=== PATIENT | female | born 2000 | race Caucasian/White ===

== ENCOUNTER 2020-06-07 13:35 | Emergency (ER) | payer BC ==
[2020-06-07] MEDS ORDERED: Sodium Chloride 0.9% 10 ML Syringe FLUSH PRN (13:55)
--- NOTE | 2020-06-07 13:55 | EDM.PDOC ---
ED HPI GENERAL MEDICAL PROBLEM - General Stated Complaint: VOMITING Time Seen by Provider: 06/07/20 13:50 Source of Information: Reports: Patient History Limitations: Reports: No Limitations - History of Present Illness INITIAL COMMENTS - FREE TEXT/NARRATIVE: 19-year-old female ( 2 para 0 AB 1 who is approximately 27 weeks gestation) who reports beginning approximately 7 PM last night she developed nausea and some malaise. She had been eating and drinking normally prior to this and she had really had no symptoms prior to this at all. Beginning approximately 11 PM last night she developed vomiting and some mild upper abdominal discomfort. She had vomiting 15+ through the night and today and was unable to keep any liquids down. She states initially it was food particles and then it was whenever water she tried to drink and then it was somewhat bilious toward the end. There is no blood in her emesis. She did have a normal bowel movement yesterday and has had no diarrhea and has had no bowel movement today. She reports that it does feel uncomfortable when she urinates but no dysuria and no hematuria. She does note that the urine was concentrated and she has had decreased urine output. She has had no measured fever and no chills. She reports that her abdominal pain is mild and she would basically describe it as a discomfort and it is above her upper abdomen. She rates this pain/discomfort as a 2/10. She has had no vaginal fluid leakage and no vaginal bleeding. He continues to have nausea now. She has no appetite. She has had no nasal congestion, sore throat or cough. No shortness of breath. She does feel somewhat weak and dizzy and has a dry mouth. There are no other associated signs or symptoms. There are no other modifying factors. She is here with her mother. Onset: Other (Last night at 7 PM) Duration: Getting Worse Location: Reports: Abdomen Quality: Reports: Ache, Dull Severity: Mild Improves with: Reports: None Worsens with: Reports: Other (Trying to take PO) Associated Symptoms: Reports: Nausea/Vomiting, Weakness, Other (Otherwise as above.) Treatments SINK CUTTER: Reports: Other (see below) (Nothing.) - Related Data Allergies Allergy/AdvReac Type Severity Reaction Status Date / Time bupropion [From Wellbutrin] AdvReac Mild Other Verified 06/07/20 13:53 escitalopram [From Lexapro] AdvReac Mild Other Verified 06/07/20 13:52 Home Meds: Home Meds Mag Oxide/D3/Turmeric Rt Xt [Magnesium-Vit D3-Turmeric Cap] 1 each PO DAILY 06/07/20 [History] Pnv No.95/Ferrous Fum/Folic AC [ Tablet] 1 each PO DAILY 06/07/20 [History] Past Medical History - Past Health History Medical/Surgical History: Denies Medical/Surgical History (Surgical history as detailed below.) - Past Surgical History Musculoskeletal Surgical History: Reports: Other (See Below) (Left knee surgery 3.) Social & Family History - Tobacco Use Tobacco Use Status *Q: Unknown Ever Used Tobacco (Nonsmoker.) - Alcohol Use Alcohol Use History: No - Living Situation & Occupation Social History Comment: She is here with her mother. ED ROS GENERAL - Review of Systems Review Of Systems: See Below Constitutional: Reports: Malaise HEENT: Reports: Other (Dry mouth.) Respiratory: Reports: No Symptoms Cardiovascular: Reports: No Symptoms GI/Abdominal: Reports: Abdominal Pain (Mild as above.), Nausea, Vomiting. Denies: Diarrhea : Reports: Other (Decreased urination.). Denies: Discharge (No vaginal fluid or vaginal bleeding.) Musculoskeletal: Reports: Back Pain (Some lower back pain.) Skin: Reports: No Symptoms Neurological: Reports: Weakness (Generalized) Psychiatric: Reports: No Symptoms Hematologic/Lymphatic: Reports: No Symptoms Immunologic: Reports: No Symptoms ED EXAM, GENERAL - Physical Exam Exam: See Below Exam Limited By: No Limitations General Appearance: Alert, Moderate Distress, Obese Eye Exam: Bilateral Eye: EOMI, Normal Inspection (Sclerae are anicteric), PERRL Ears: Normal External Exam, Hearing Grossly Normal Ear Exam: Bilateral Ear: Auricle Normal Nose: Normal Inspection, Normal Mucosa, No Blood Throat/Mouth: Normal Lips, Normal Voice, No Airway Compromise, Other (Dry mucous membranes.) Head: Atraumatic, Normocephalic Neck: Normal Inspection, Supple, Non-Tender, Full Range of Motion Respiratory/Chest: No Respiratory Distress, Lungs Clear, Normal Breath Sounds, No Accessory Muscle Use, Chest Non-Tender Cardiovascular: Normal Peripheral Pulses, No Murmur, Tachycardia Peripheral Pulses: 2+: Radial (L), Radial (R), Dorsalis Pedis (L), Dorsalis Pedis (R) GI/Abdominal: Normal Bowel Sounds, Soft, No Mass, Tender (Mild tenderness in the upper abdomen all across the upper abdomen.), Other (The uterus is soft and nontender. I didn't feel movement. heart tones are 124.) Back Exam: Normal Inspection, Full Range of Motion. No: CVA Tenderness (R), CVA Tenderness (L) Extremities: Normal Inspection, Normal Range of Motion, Non-Tender, No Pedal Edema, Normal Capillary Refill, Other (Radial and dorsalis pedis pulses are present and symmetric bilaterally.) Neurological: Alert, Oriented, CN II-XII Intact, Normal Cognition, No Motor/Sensory Deficits Psychiatric: Normal Affect Skin Exam: Warm, Dry, Intact, Normal Color, No Rash Course - Vital Signs Last Recorded V/S: Last Vital Signs Temp 36.7 C 06/07/20 14:09 Pulse 121 H 06/07/20 14:09 Resp 16 06/07/20 14:09 BP 140/80 06/07/20 14:09 Pulse Ox 96 06/07/20 14:09 - Orders/Labs/Meds Orders: Active Orders 24 hr Category Date Time Status Sodium Chloride 0.9% [Normal Saline] 1,000 ml Med 06/07/20 14:00 Active IV ASDIRECTED Sodium Chloride 0.9% [Saline Flush] Med 06/07/20 13:55 Active 10 ml FLUSH ASDIRECTED PRN Peripheral IV Insertion Adult [OM.PC] Routine Oth 06/07/20 13:55 Ordered Medication Orders Sodium Chloride (Normal Saline) 1,000 mls @ 150 mls/hr IV ASDIRECTED JUAN DIEGO Last Admin: 06/07/20 15:20 Dose: 150 mls/hr Documented by: LOUISE Sodium Chloride (Sodium Chloride 0.9% 10 Ml Syringe) 10 ml FLUSH ASDIRECTED PRN PRN Reason: Keep Vein Open Last Admin: 06/07/20 13:59 Dose: 10 ml Documented by: LOUISE Labs: Laboratory Tests 06/07/20 06/07/20 06/07/20 Range/Units 14:00 14:30 14:30 WBC 12.7 H (3.0-10.3) x10-3/uL RBC 4.22 (3.60-5.20) x10(6)uL Hgb 13.2 (11.4-15.5) g/dL Hct 39.9 (34.2-48.2) % MCV 94.5 (76.7-100.5) fL MCH 31.2 (23.9-33.9) pg MCHC 33.1 (31.9-34.8) g/dL RDW 15.0 (12.3-16.5) % Plt Count 176 (151-488) x10(3)uL MPV 8.3 (7.1-12.4) fL Add Manual Diff Yes Neutrophils % (Manual) 87 H (46-82) % Band Neutrophils % 3 (0-6) % Lymphocytes % (Manual) 5 L (13-37) % Monocytes % (Manual) 5 (4-12) % Tear Drop Cells Few Sodium 140 (135-145) mmol/L Potassium 3.8 (3.5-5.3) mmol/L Chloride 102 (100-110) mmol/L Carbon Dioxide 24 (21-32) mmol/L BUN 11 (7-18) mg/dL Creatinine 0.8 (0.55-1.02) mg/dL Est Cr Clr Drug Dosing TNP Estimated GFR (MDRD) > 60 (>60) BUN/Creatinine Ratio 13.8 (9-20) Glucose 102 (80-116) mg/dL Calcium 8.3 L (8.6-10.2) mg/dL Magnesium 1.6 L (1.8-2.5) mg/dL Total Bilirubin 0.4 (0.1-1.3) mg/dL AST 14 (5-25) IU/L ALT 18 (12-36) U/L Alkaline Phosphatase 87 (56-112) IU/L C-Reactive Protein (0.5-0.9) mg/dL Total Protein 6.2 (6.0-8.0) g/dL Albumin 2.7 L (3.5-5.2) g/dL Globulin 3.5 g/dL Albumin/Globulin Ratio 0.8 Lipase (73-393) U/L Urine Color (YELLOW) Urine Appearance (CLEAR) Urine pH (5.0-6.5) Ur Specific Nelson (1.010-1.025) Urine Protein (NEGATIVE) mg/dL Urine Glucose (UA) (NORMAL) mg/dL Urine Ketones (NEGATIVE) mg/dL Urine Occult Blood (NEGATIVE) Urine Nitrite (NEGATIVE) Urine Bilirubin (NEGATIVE) Urine Urobilinogen (NEGATIVE) mg/dL Ur Leukocyte Esterase (NEGATIVE) Urine RBC (0-5) Urine WBC (0-5) Ur Squamous Epith Cells (NS,R,O) Urine Bacteria (NS) SARS-CoV-2 RNA (JERO) Negative (NEGATIVE) 06/07/20 06/07/20 Range/Units 14:30 15:15 WBC (3.0-10.3) x10-3/uL RBC (3.60-5.20) x10(6)uL Hgb (11.4-15.5) g/dL Hct (34.2-48.2) % MCV (76.7-100.5) fL MCH (23.9-33.9) pg MCHC (31.9-34.8) g/dL RDW (12.3-16.5) % Plt Count (151-488) x10(3)uL MPV (7.1-12.4) fL Add Manual Diff Neutrophils % (Manual) (46-82) % Band Neutrophils % (0-6) % Lymphocytes % (Manual) (13-37) % Monocytes % (Manual) (4-12) % Tear Drop Cells Sodium (135-145) mmol/L Potassium (3.5-5.3) mmol/L Chloride (100-110) mmol/L Carbon Dioxide (21-32) mmol/L BUN (7-18) mg/dL Creatinine (0.55-1.02) mg/dL Est Cr Clr Drug Dosing Estimated GFR (MDRD) (>60) BUN/Creatinine Ratio (9-20) Glucose (80-116) mg/dL Calcium (8.6-10.2) mg/dL Magnesium (1.8-2.5) mg/dL Total Bilirubin (0.1-1.3) mg/dL AST (5-25) IU/L ALT (12-36) U/L Alkaline Phosphatase (56-112) IU/L C-Reactive Protein 3.7 H* (0.5-0.9) mg/dL Total Protein (6.0-8.0) g/dL Albumin (3.5-5.2) g/dL Globulin g/dL Albumin/Globulin Ratio Lipase 61 L (73-393) U/L Urine Color Yellow (YELLOW) Urine Appearance Clear (CLEAR) Urine pH 5.0 (5.0-6.5) Ur Specific Nelson 1.030 H (1.010-1.025) Urine Protein Negative (NEGATIVE) mg/dL Urine Glucose (UA) Normal (NORMAL) mg/dL Urine Ketones 150 H (NEGATIVE) mg/dL Urine Occult Blood Negative (NEGATIVE) Urine Nitrite Negative (NEGATIVE) Urine Bilirubin Negative (NEGATIVE) Urine Urobilinogen Normal (NEGATIVE) mg/dL Ur Leukocyte Esterase Negative (NEGATIVE) Urine RBC 0-5 (0-5) Urine WBC 0-5 (0-5) Ur Squamous Epith Cells Moderate H (NS,R,O) Urine Bacteria Few H (NS) SARS-CoV-2 RNA (JERO) (NEGATIVE) Meds: Medications Generic Name Dose Route Start Last Admin Trade Name Freq PRN Reason Stop Dose Admin Sodium Chloride 1,000 mls @ 150 mls/hr 06/07/20 14:00 06/07/20 15:20 Normal Saline IV 150 mls/hr ASDIRECTED JUAN DIEGO Administration Sodium Chloride 10 ml 06/07/20 13:55 06/07/20 13:59 Sodium Chloride 0.9% 10 Ml Syringe FLUSH 10 ml ASDIRECTED PRN Administration Keep Vein Open Discontinued Medications Generic Name Dose Route Start Last Admin Trade Name Freq PRN Reason Stop Dose Admin Sodium Chloride 1,000 mls @ 999 mls/hr 06/07/20 13:56 06/07/20 13:59 Normal Saline IV 06/07/20 14:56 999 mls/hr .BOLUS ONE Administration Promethazine HCl 25 mg/ Sodium 51 mls @ 200 mls/hr 06/07/20 13:57 06/07/20 14:01 Chloride IV 06/07/20 14:12 200 mls/hr ONETIME ONE Administration Ondansetron HCl 4 mg 06/07/20 15:57 06/07/20 16:16 Ondansetron 4 Mg/2 Ml Sdv IVPUSH 06/07/20 15:58 4 mg ONETIME ONE Administration - Re-Assessments/Exams Free Text/Narrative Re-Assessment/Exam: 06/07/20 15:45: The patient is having persistent nausea. I will give the patient Zofran 4 mg IV. She does feel somewhat improved. 06/07/20 17:05: The patient's white blood cell count was elevated at 12.7. Her CRP was elevated at 3.7. Her urinalysis was clear. Her serum electrolyte profile was normal. His are normal. A rapid Covid test was negative. The patient does report she felt somewhat improved after the IV fluids and after IV and IV Zofran. She does feel that her pain is somewhat worse than it was earlier that her nausea is much improved. On exam she does have increased pain with palpation in her upper abdomen on both sides seems to extend even down to the lateral aspects of her uterus. Her uterus is still nontender and soft. Her heart tones are in the 120s. I'm concerned about her elevated white blood cell count and CRP in association with this abdominal pain during her . I feel that she will will need services which are not available at [facility], OB services in association with surgical evaluation as well. I discussed all this with the patient and her mother and they have asked me to discuss her case with the doctors at [facility]. 06/07/20 17:35: I discussed the patient's case with Dr. Figueroa, ED physician at [facility], and he wants me to discuss the patient's case with the surgeon gas combustion engineer. 06/07/20 17:50: I discussed the patient's case with Dr. Eckert, general surgeon at [facility], and he has agreed to accept the patient along with Dr. Figueroa come to the emergency department for further evaluation. The patient will be able to go by private vehicle and this is the mother and the patient's w ishes. We will leave the IV in place and the patient is to go directly to the emergency department at [facility]. She was also instructed to stay NPO. The patient and the mother are in agreement with this plan. Departure - Departure Time of Disposition: 18:10 Disposition: DC/Tfer to Acute Hospital 02 Condition: Fair (Stable) Clinical Impression: Abdominal pain of unknown etiology, Moderate dehydration, Third trimester Vomiting Qualifiers: Vomiting type: unspecified Vomiting Intractability: intractable Nausea presence: with nausea Qualified Code(s): R11.2 - Nausea with vomiting, unspecified - Discharge Information Referrals: PCP,Not In Area [Primary Care Provider] - Forms: ED Department Discharge Additional Instructions: Go directly to the emergency department at [facility]. He will be evaluated the emergency department physician and also by the surgical physician and most probably be admitted to the hospital. Do not have anything to eat or drink and told cleared to do so by the doctors at [facility] in [place]. Sepsis Event Note (ED) - Focused Exam Vital Signs: Vital Signs Temp Pulse Resp BP Pulse Ox 06/07/20 14:09 36.7 C 121 H 16 140/80 96 - My Orders Last 24 Hours: My Active Orders 06/07/20 13:55 Sodium Chloride 0.9% [Saline Flush] 10 ml FLUSH ASDIRECTED PRN Peripheral IV Insertion Adult [OM.PC] Routine 06/07/20 14:00 Sodium Chloride 0.9% [Normal Saline] 1,000 ml IV ASDIRECTED - Assessment/Plan Last 24 Hours: My Active Orders 06/07/20 13:55 Sodium Chloride 0.9% [Saline Flush] 10 ml FLUSH ASDIRECTED PRN Peripheral IV Insertion Adult [OM.PC] Routine 06/07/20 14:00 Sodium Chloride 0.9% [Normal Saline] 1,000 ml IV ASDIRECTED
[2020-06-07] MEDS ORDERED: Sodium Chloride 0.9% 1,000 ML IV ONE (13:56)
[2020-06-07] MEDS ORDERED: Promethazine 25 MG in Sodium Chloride 0.9% 50 ML IV ONE (13:57)
[2020-06-07] MEDS ORDERED: Sodium Chloride 0.9% 1,000 ML IV SCH (14:00)
[2020-06-07] MEDS ORDERED: Ondansetron 4 MG/2 ML SDV IVPUSH ONE (15:57)
== END 2020-06-07 18:23 ==
LOC: FB.ED 13:35 → EDUNIT# 13:35 → FB.ED 18:23
DX: O21.2 Late vomiting of pregnancy (principal); O99.283 Endocrine, nutritional and metabolic diseases complicating pregnancy, third trimester; O99.891 Other specified diseases and conditions complicating pregnancy; R10.9 Unspecified abdominal pain; Z3A.27 27 weeks gestation of pregnancy; Z88.8 Allergy status to other drugs, medicaments and biological substances; Z20.822 Contact with and (suspected) exposure to COVID-19
CPT/HCPCS: 36415; 80053; 81001; 83690; 83735; 85025; 86140; 87635; 96361; 96365; 96375; 99284; J2405; J2550; J7030; U0002